=== PATIENT | male | born 1955 | race Caucasian/White ===

== ENCOUNTER 2018-12-11 11:07 | Emergency (ER) | payer OTHER ==
--- NOTE | 2018-12-11 11:56 | ER ---
Nurse's Notes [facility] Name: Napoleon Jesus Age: 63 yrs Sex: Male : 1955 Arrival Date: 12/11/2018 Time: 11:14 Bed 19 Private MD: Diagnosis: Sciatica, left side;Medication refill Presentation: 12/11 11:26 Presenting complaint: Patient states: Chronic back pain for "years" that became worse 5 aj days ago. Patient reports that ibuprofen is not helping and he cannot see his PCP to get his medications filled until 12/26. Reports low back pain that shoots down left leg. Transition of care: patient was not received from another setting of care. Onset of symptoms was 2009. Risk Assessment: Do you want to hurt yourself or someone else? Patient reports no desire to harm self or others. Initial Sepsis Screen: Does the patient meet any 2 criteria? No. Patient's initial sepsis screen is negative. Does the patient have a suspected source of infection? No. Patient's initial sepsis screen is negative. Care prior to arrival: None. 11:26 Method Of Arrival: Wheelchair 11:26 Acuity: SORAIDA 5 aj Triage Assessment: 11:30 General: Appears in no apparent distress. comfortable, Behavior is calm, cooperative, aj appropriate for age. Pain: Complains of pain in lumbar area, left low back and left mid back. Neuro: Level of Consciousness is awake, alert, obeys commands, Oriented to person, place, time, situation, Appropriate for age. Respiratory: Airway is patent Respiratory effort is even, unlabored, Respiratory pattern is regular, symmetrical. Derm: Skin is intact, is healthy with good turgor, Skin is pink, warm \\T\\ dry. normal. Musculoskeletal: Range of motion: intact in all extremities. Historical: - Allergies: 11:30 Dilantin; aj - Home Meds: 11:30 amlodipine oral [Active]; Metformin Oral [Active]; atorvastatin oral oral [Active]; aj Flexeril Oral [Active]; - PMHx: 11:30 Hypertension; Hyperlipidemia; chronic back pain; Refused SX to repair "ruptured L4-5"; aj - PSHx: 11:30 Tonsillectomy; aj - Immunization history:: Adult Immunizations up to date. - Social history:: Smoking status: Patient uses tobacco products, smokes one-half pack cigarettes per day. - Ebola Screening: : Patient negative for fever greater than or equal to 101.5 degrees Fahrenheit, and additional compatible Ebola Virus Disease symptoms Patient denies exposure to infectious person Patient denies travel to an Ebola-affected area in the 21 days before illness onset No symptoms or risks identified at this time. Screenin:33 Abuse screen: Denies threats or abuse. Denies injuries from another. Nutritional hj screening: No deficits noted. Tuberculosis screening: No symptoms or risk factors identified. Fall Risk None identified. Assessment: 11:33 General: Appears in no apparent distress. uncomfortable, Behavior is calm, cooperative, hj appropriate for age. Pain: Complains of pain in back and left mid back and left low back and lumbar area. Neuro: Level of Consciousness is awake, alert, obeys commands, Oriented to person, place, time, situation, Appropriate for age. Cardiovascular: Capillary refill < 3 seconds Patient's skin is warm and dry. Respiratory: Airway is patent Respiratory effort is even, unlabored, Respiratory pattern is regular, symmetrical. GI: No signs and/or symptoms were reported involving the gastrointestinal system. : No signs and/or symptoms were reported regarding the genitourinary system. EENT: No signs and/or symptoms were reported regarding the EENT system. Derm: No signs and/or symptoms reported regarding the dermatologic system. Musculoskeletal: Reports pain in left mid back and left low back and lumbar area. 12:16 Reassessment: Patient and/or family updated on plan of care and expected duration. Pain hj level reassessed. Patient is alert, oriented x 3, equal unlabored respirations, skin warm/dry/pink. awaiting ride from a family member; Patient states feeling better. Patient states symptoms have improved. Vital Signs: 11:30 BP 137 / 100; Pulse 85; Resp 20; Temp 97.9; Pulse Ox 98% on R/A; Weight 80.74 kg; aj Height 5 ft. 11 in. (180.34 cm); 11:30 Body Mass Index 24.83 (80.74 kg, 180.34 cm) aj ED Course: 11:14 Patient arrived in ED. mr 11:28 Triage completed. aj 11:28 Paolo Goss MD is Attending Physician. ps1 11:30 Arm band placed on left wrist. Patient placed in an exam room. aj 11:33 Jose Peña, RN is Primary Nurse. hj 11:33 Patient has correct armband on for positive identification. Bed in low position. Call hj light in reach. Side rails up X 1. Adult w/ patient. 11:54 Arnold Farr MD is Referral Physician. ps1 12:06 No provider procedures requiring assistance completed. Patient did not have IV access hj during this emergency room visit. Administered Medications: 12:01 Drug: TORadol 30 mg Route: IM; Site: right deltoid; hj 12:05 Follow up: Response: No adverse reaction; Pain is decreased hj 12:12 Follow up: Response: No adverse reaction; Pain is decreased hj Outcome: 11:55 Discharge ordered by MD. ps1 12:06 Discharged to home ambulatory. hj 12:06 Condition: stable 12:06 Discharge instructions given to patient, family, Instructed on discharge instructions, follow up and referral plans. medication usage, Demonstrated understanding of instructions, follow-up care, medications, Prescriptions given X 8 12:31 Patient left the ED. hj Signatures: Mahsa Borges, RN RN Mayela Pradhan mr Jsoe Peña, RN RN Paolo Arellano MD MD ps1 Corrections: (The following items were deleted from the chart) 12:09 12:06 Discharge instructions given to patient, family, Instructed on discharge hj instructions, follow up and referral plans. Demonstrated understanding of instructions, follow-up care, hj
--- NOTE | 2018-12-11 11:56 | EDPHYS ---
Physician Documentation [facility] Name: Napoleon Jesus Age: 63 yrs Sex: Male : 1955 Arrival Date: 12/11/2018 Time: 11:14 Bed 19 Private MD: ED Physician Paolo Goss HPI: 12/11 11:49 This 63 yrs old Male presents to ER via Wheelchair with complaints of Back ps1 Pain. 11:49 patient presenting with atraumatic back pain that is chronic. Pain is on left with ps1 radiation down the leg. Pain rated as moderate and worse with movement.He has a known abnormality at L4-5 that he was previously evaluated for surgical intervention but refused because his friends had poor results. He was recently incarcerated and did not seek out care during that time and was managed with ibuprofen. He has not been able to see his PCP since being released. He is on amlodipine 5 mg, Atorvastatin 10 mg, metformin 1000 bid, and does not have glucose monitoring and strips. He is requesting pain management referral. . Historical: - Allergies: 11:30 Dilantin; aj - Home Meds: 11:30 amlodipine oral [Active]; Metformin Oral [Active]; atorvastatin oral oral [Active]; aj Flexeril Oral [Active]; - PMHx: 11:30 Hypertension; Hyperlipidemia; chronic back pain; Refused SX to repair "ruptured L4-5"; aj - PSHx: 11:30 Tonsillectomy; aj - Immunization history:: Adult Immunizations up to date. - Social history:: Smoking status: Patient uses tobacco products, smokes one-half pack cigarettes per day. - Ebola Screening: : Patient negative for fever greater than or equal to 101.5 degrees Fahrenheit, and additional compatible Ebola Virus Disease symptoms Patient denies exposure to infectious person Patient denies travel to an Ebola-affected area in the 21 days before illness onset No symptoms or risks identified at this time. ROS: 11:49 Constitutional: Negative for fever, chills, and weight loss, Eyes: Negative for injury, ps1 pain, redness, and discharge, ENT: Negative for injury, pain, and discharge, Cardiovascular: Negative for chest pain, palpitations, and edema, Respiratory: Negative for shortness of breath, cough, wheezing, and pleuritic chest pain, Abdomen/GI: Negative for abdominal pain, nausea, vomiting, diarrhea, and constipation, MS/Extremity: Negative for injury and deformity, Skin: Negative for injury, rash, and discoloration, Neuro: Negative for headache, weakness, numbness, tingling, and seizure. 11:49 Back: Positive for pain with movement. Exam: 11:49 Constitutional: This is a well developed, well nourished patient who is awake, alert, ps1 and in no acute distress. Head/Face: Normocephalic, atraumatic. Eyes: Pupils equal round and reactive to light, extra-ocular motions intact. Lids and lashes normal. Conjunctiva and sclera are non-icteric and not injected. Chest/axilla: Normal chest wall appearance and motion. Nontender with no deformity. No lesions are appreciated. Cardiovascular: Regular rate and rhythm. No gallops, murmurs, or rubs. Normal PMI, no JVD. No pulse deficits. Respiratory: Lungs have equal breath sounds bilaterally, clear to auscultation and percussion. No rales, rhonchi or wheezes noted. No increased work of breathing, no retractions or nasal flaring. Abdomen/GI: Soft, non-tender, with normal bowel sounds. No distension or tympany. No guarding or rebound. No evidence of tenderness throughout. MS/ Extremity: Pulses equal, no cyanosis. Neurovascular intact. Full, normal range of motion. Neuro: Awake and alert, GCS 15, oriented to person, place, time, and situation. Cranial nerves II-XII grossly intact. Sensory grossly intact. Psych: Awake, alert, with orientation to person, place and time. Behavior, mood, and affect are within normal limits. 11:49 Back: pain, that is moderate, ROM is decreased, with all movement, muscle spasm, is appreciated in the right mid back and right low back. Vital Signs: 11:30 BP 137 / 100; Pulse 85; Resp 20; Temp 97.9; Pulse Ox 98% on R/A; Weight 80.74 kg; aj Height 5 ft. 11 in. (180.34 cm); 11:30 Body Mass Index 24.83 (80.74 kg, 180.34 cm) aj MDM: 11:49 Data reviewed: vital signs, nurses notes, and as a result, I will discharge patient, ps1 refill medications and refer to Dr. Farr for pain management and consideration of non-medical intervention.. 11:55 Patient medically screened. ps1 Administered Medications: 12:01 Drug: TORadol 30 mg Route: IM; Site: right deltoid; hj 12:05 Follow up: Response: No adverse reaction; Pain is decreased hj 12:12 Follow up: Response: No adverse reaction; Pain is decreased hj Disposition: 12/11/18 11:55 Discharged to Home. Impression: Sciatica, left side, Medication refill. - Condition is Stable. - Discharge Instructions: Sciatica. - Prescriptions for DIABETIC MONITOR and STRIPS - use as directed 1 strip by SUBCUTANEOUS route 3 times per day; 1 box. amlodipine 5 mg Oral tablet - take 1 tablet by ORAL route once daily; 30 tablet. atorvastatin 10 mg Oral tablet - take 1 tablet by ORAL route once daily; 30 tablet. Anaprox DS 550 mg Oral Tablet - take 1 tablet by ORAL route every 12 hours As needed; 20 tablet. Robaxin 500 mg Oral Tablet - take 2 tablet by ORAL route every 6 hours As needed; 40 tablet. Metformin 1,000 mg Oral Tablet - take 1 tablet by ORAL route every 12 hours with morning and evening meals; 60 tablet. Tramadol 50 mg Oral Tablet - take 1 tablet by ORAL route every 8 hours as needed; 30 tablet. Medrol (Jeff) 4 mg Oral Tablets, Dose Pack - take 1 tablet by ORAL route as directed - follow package instructions; 1 packet. - Medication Reconciliation Form, Thank You Letter, Antibiotic Education, Prescription Opioid Use form. - Follow up: Arnold Farr MD; When: Upon discharge from the Emergency Department; Reason: Further diagnostic work-up, Recheck today's complaints. Follow up: Emergency Department; When: As needed; Reason: Fever > 102 F, Worsening of condition. - Problem is chronic. - Symptoms have worsened. Signatures: Mahsa Borges RN RN Jose Foley RN RN hj Singer, Phillip, MD MD ps1 Corrections: (The following items were deleted from the chart) 12:31 11:55 12/11/2018 11:55 Discharged to Home. Impression: Sciatica, left side; Medication hj refill. Condition is Stable. Forms are Medication Reconciliation Form, Thank You Letter, Antibiotic Education, Prescription Opioid Use. Follow up: Arnold Farr; When: Upon discharge from the Emergency Department; Reason: Further diagnostic work-up, Recheck today's complaints. Follow up: Emergency Department; When: As needed; Reason: Fever > 102 F, Worsening of condition. Problem is chronic. Symptoms have worsened. ps1
[2018-12-11] MEDS ORDERED: KETOROLAC 30 MG/ML INJ ONE (12:13)
== END 2018-12-11 12:31 | disposition home or self-care (01) ==
LOC: ER 11:07
DX: M54.32 Sciatica, left side (principal); I10 Essential (primary) hypertension; E78.5 Hyperlipidemia, unspecified; Z76.0 Encounter for issue of repeat prescription; Z88.8 Allergy status to other drugs, medicaments and biological substances
CPT/HCPCS: 96372; 99283